=== PATIENT | female | born 1970 | race Caucasian/White ===

== ENCOUNTER → 2021-04-12 13:06 | Outpatient (CLI) | payer OTHER, SELFPAY ==
--- NOTE | ~2021-04-12 | XR_ITS ---
EXAMINATION: XR shoulder LT min 2V DATE: 04/12/2021 14:01 INDICATION: Left shoulder pain. TECHNIQUE: 4 views of left shoulder were obtained. COMPARISON: None. FINDINGS: Bone alignment is normal. No fracture. There is plate and screw fixation of the left clavic le. There is an old healed fracture of left sixth rib. There is mild osteoarthritis of glenoid yamila l joint and acromioclavicular joint characterized by tiny marginal osteophytes. IMPRESSION: 1. Mild polyarticular osteoarthritis. Reviewed, dictated and finalized at location A.
--- NOTE | ~2021-04-12 | XR_ITS ---
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 COMPARISON: None FINDINGS: . No free normal cervical lordosis. Odontoid is intact. Normal atlantoaxial interval. Vertebral body heights are normal. Moderate disc height loss at C6-C7, mild to moderate disc height loss at C4-C5 a nd C5-C6 and mild disc height loss at C3-C4. Moderate to severe uncovertebral osteoarthritis at each of these levels. Moderate facet osteoarthritis at C2-C3 and C7-T1 with mild facet osteoarthritis at t he intervening levels. Prevertebral soft tissues are normal. Plate and screw fixation along the left clavicular diaphysis. Visualized apices of lungs are clear. IMPRESSION: 1. Moderate cervical spondylosis. Reviewed, dictated and finalized at location A.
--- NOTE | ~2021-04-12 | XR_ITS ---
EXAMINATION: XR knee RT 3V DATE: 04/12/2021 14:01 INDICATION: Right knee pain. TECHNIQUE: 3 views of right knee were obtained. COMPARISON: None. FINDINGS: Bone alignment is normal. No fracture. There are surgical changes of anterior cruciate liga ment reconstruction. There is mild tricompartmental osteoarthritis. No knee joint effusion. IMPRESSION: 1. Mild right knee osteoarthritis. Reviewed, dictated and finalized at location A.
== END ==
PROVIDERS: PCP Family Medicine; Visit Provider Family Medicine
DX: M47.813 Spondylosis without myelopathy or radiculopathy, cervicothoracic region (principal); M19.012 Primary osteoarthritis, left shoulder; M17.11 Unilateral primary osteoarthritis, right knee
CPT/HCPCS: 72050; 73030; 73562

== ENCOUNTER 2021-05-16 12:14 | Outpatient (CLI) | payer OTHER, SELFPAY ==
--- NOTE | ~2021-05-16 | CT_ITS ---
EXAMINATION: CTA chest PE protocol EXAM DATE: 05/16/2021 12:47 INDICATION: Exertional dyspnea. Shortness of breath. Right-sided chest pain. Cough. TECHNIQUE: Spiral CTA of the chest (pulmonary arteries) was performed with 100 cc Omnipaque 350 intr avenous contrast injection. Images were acquired during the pulmonary arterial phase. Coronal maxi mum intensity projection 3D-reconstructions were created by the technologist on dedicated workstation . Axial, coronal and sagittal reformatted images were reviewed. The dose-length product (DLP) for t his examination was 605.33 mGy-cm. The exposure was tailored according to patient size (auto mA exp osure control), and iterative reconstruction (ASIR) was used as additional dose reduction technique. There is no prior study for comparison. FINDINGS: There is right lower lobe subsegmental pulmonary embolism. There is lingular segmental pul monary embolism (this could be subacute and partially resolving). Low clot burden. No thoracic aorti c dissection. The lungs are clear. Small pericardial effusion. No pleural effusions. Tracheobronc hial tree is patent. There is no mediastinal, hilar or axillary lymphadenopathy. There is no pneu mothorax. Heart normal in size. No evidence of coronary arterial calcification. Upper abdomen is unremarkable. No osteoblastic or osteolytic lesions identified. Left clavicular hardware. IMPRESSION: 1. Positive for lingular segmental, right lower lobe subsegmental pulmonary emboli. Low clot burden. 2. Small pericardial effusion. STAT hold and call. I confirmed with Misa that patient is in waiting room. She is notifying orderi doctor of results and patient will be given instructions at that time. Reviewed, dictated and finalized at location B. IMPRESSION: 1. Positive for lingular segmental, right lower lobe subsegmental pulmonary em boli. Low clot burden. 2. Small pericardial effusion. STAT hold and call. I confirmed with Misa that patient is in waiting room. S he is notifying ordering doctor of results and patient will be given instructio ns at that time.
--- NOTE | ~2021-05-16 | CT_ITS ---
EXAMINATION: CT brain wo con EXAM DATE: 05/16/2021 12:47 INDICATION: Right-sided headache, dizziness. TECHNIQUE: Spiral CT of the head was performed without contrast. Axial, coronal and sagittal images were reviewed. The dose-length product (DLP) for this examination was 605.33 mGy-cm. The exposure w as tailored according to patient size, and iterative reconstruction (ASIR) was used as additional dos e reduction technique. There is no prior study for comparison. FINDINGS: There is no acute intraparenchymal hemorrhage. No evidence of intraparenchymal brain mass lesion. No evidence of acute infarction. There is no mass effect or midline shift. The ventricles are normal in size. There are no extra-axial collections. There are no acute calvarial fractures. T he orbits are unremarkable. Soft tissue is unremarkable. The visualized sinuses and mastoid air chandra ls are well aerated. IMPRESSION: 1. No acute intracranial findings. Reviewed, dictated and finalized at location B.
== END 2021-05-16 12:15 | disposition home or self-care (01) ==
LOC: ANHIMG 12:16
PROVIDERS: PCP Family Medicine
DX: R06.09 Other forms of dyspnea (principal); R51.9 Headache, unspecified; J90 Pleural effusion, not elsewhere classified
CPT/HCPCS: 70450; 71275; Q9967

== ENCOUNTER 2021-05-17 09:33 | Emergency (ER) | payer OTHER, SELFPAY ==
--- NOTE | ~2021-05-17 | XR_ITS ---
EXAMINATION: XR chest 2V DATE: 05/17/2021 10:44 INDICATION: Chest pain. Dizziness. TECHNIQUE: Frontal and lateral views of the chest were obtained. COMPARISON: Chest CT 05/16/2021 FINDINGS: The chest demonstrates clear lungs without pneumonia, pleural effusion, or pneumothorax. Th e heart size is normal. There is plate and screw fixation of left clavicle. Breast implants are noted . IMPRESSION: 1. No acute cardiopulmonary disease. Reviewed, dictated and finalized at location A.
--- NOTE | ~2021-05-17 | US_ITS ---
EXAMINATION: US venous doppler LE EXAM DATE: 05/17/2021 11:42 INDICATION: Pulmonary embolism. Respiratory abnormality. TECHNIQUE: Multiple grayscale, color flow and Doppler images of the lower extremity deep venous syste ms bilaterally were obtained and reviewed. Correlation is made to CT pulmonary scan from yesterday. FINDINGS: Right side: The right common femoral, femoral and profunda veins demonstrate normal color flow, respi ratory variation, augmentation and compressibility. Compressibility, color flow confirmed within the right popliteal, posterior tibial, peroneal, and greater saphenous veins. Left side: The left common femoral, femoral and profunda veins demonstrate normal color flow, respira tory variation, augmentation and compressibility. Compressibility, color flow confirmed within the l eft popliteal, posterior tibial, peroneal, and greater saphenous veins. IMPRESSION: 1. No lower extremity deep venous thrombosis bilaterally. Reviewed, dictated and finalized at location B.
[2021-05-17 09:53] VITALS: BP 131/87; PULSE 70; RESP 9; TEMP 36.8; O2SAT 90
[2021-05-17] MEDS: KETOROLAC 15 MG/ML VIAL (*BKC) IV PUSH (10:14)
[2021-05-17 10:18] VITALS: O2SAT 95
[2021-05-17 10:20] LABS: Basophils Absolute Auto 0.1 K/mm3 (0.0-0.1); Basophils Percent Auto 1.1 % (0.2-1.2); Eosinophils Absolute Auto 0.1 K/mm3 (0-0.3); Eosinophils Percent Auto 1.4 % (0-4.4); Hematocrit 41.3 % (37.0-47.0); Hemoglobin 13.7 g/dL (12.0-15.0); Immature Granulocyte Absolute 0.06 K/mm3 (0.00-0.031); Immature Granulocyte Percent A 0.9 % (0-0.5); Lymphocytes Absolute Auto 2.68 K/mm3 (0.9-3.2); Lymphocytes Percent Auto 40.7 % (18.3-44.2); Mean Corpuscular HGB Conc 33.2 g/dl (32-36); Mean Corpuscular Hemoglobin 31.4 pg (26-34); Mean Corpuscular Volume 94.7 fl (80-100); Mean Platelet Volume 9.3 fl (7.4-10.4); Monocytes Absolute Auto 0.6 K/mm3 (0.1-0.6); Monocytes Percent Auto 8.5 % (2.6-8.5); Neutrophils Absolute Auto 3.1 K/mm3 (1.3-6.7); Neutrophils Percent Auto 47.4 % (45.5-73.1); Platelet Count Result 302 k/mm3 (150-375); Red Blood Count 4.36 M/mm3 (4.2-5.4); Red Cell Distribution Width 13.1 % (11.5-14.5); White Blood Count 6.6 K/mm3 (4.5-10.0)
[2021-05-17 10:30] LABS: Anion Gap 7 mmol/L (8-16); Blood Urea Nitrogen 13 mg/dL (7-17); Calcium 9.7 mg/dL (8.4-10.2); Carbon Dioxide 23 mmol/L (22-30); Chloride 108 mmol/L (98-107); Estimated CRCL calculation 54 ml/min; Estimated Glomerular Filt Rate > 60; Glucose 100 mg/dL (65-105); Potassium 3.8 mmol/L (3.4-5.0); Sodium 138 mmol/L (137-145)
[2021-05-17 10:42] LABS: NT Pro B Type Natriuretic Pept 66 pg/mL (5-100); Troponin I < 0.012 ng/mL (0.000-0.034)
[2021-05-17] MEDS: LORazepam INJ (*CRX) 2 MG/ML VIAL (11:15)
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
[2021-05-17 12:43] VITALS: BP 129/87; PULSE 89; RESP 18; O2SAT 100
== END 2021-05-17 12:53 | disposition home or self-care (01) ==
PROVIDERS: Emergency Provider Emergency Medicine; PCP Family Medicine
DX: I26.99 Other pulmonary embolism without acute cor pulmonale (principal); R09.1 Pleurisy
CPT/HCPCS: 36415; 71046; 80048; 83880; 84484; 85025; 93970; 96374; 96375; 99284; J1885; J2060

== ENCOUNTER 2021-07-25 06:47 | Outpatient (CLI) | payer OTHER, SELFPAY ==
--- NOTE | ~2021-07-25 | MR_ITS ---
EXAMINATION: MR cervical spine wo con EXAM DATE: 07/25/2021 07:42 INDICATION: M54.12 - Radiculopathy, cervical region. Bilateral hand pain, numbness. Neck pain. TECHNIQUE: Multi-sequential, multiplanar MR images of the cervical spine were obtained without contra st. Axial T2, axial T2 MERGE sequence. Sagittal T1, T2, T2 fat saturation images also obtained. Cor relation is made to Cervical x-ray 04/12/2021 FINDINGS: There is mild reversal of the normal cervical lordosis which may be positional or spasm. T here is moderate loss of the disc height from C4 through C7, mild to moderate at C3-4. The vertebral bodies are aligned in the AP dimension. The spinal cord signal intensity and intrinsic morphology is normal. Cervicomedullary junction is normal in appearance. There are no suspicious marrow signal abno rmalities. Paraspinal soft tissue is unremarkable. Level by level evaluation: C2-C3: Disc does not extend beyond the endplate margin. Uncovertebral joint arthropathy: Mild left. Facet joint arthropathy: Mild to moderate bilateral. Neural foraminal stenosis: No stenosis. Central canal stenosis: No stenosis. C3-C4: There is a mild diffuse disc bulge. Uncovertebral joint arthropathy: Moderate left, mild to moderate right. Facet joint arthropathy: Mild to moderate right, mild left. Neural foraminal stenosis: Mild bilateral. Central canal stenosis: Mild. C4-C5: There is a mild diffuse disc bulge. Uncovertebral joint arthropathy: Moderate to severe bilateral. Facet joint arthropathy: Mild to moderate bilateral. Neural foraminal stenosis: Moderate to severe right, moderate left. Central canal stenosis: Mild. C5-C6: There is a mild diffuse disc bulge. Uncovertebral joint arthropathy: Moderate to severe right, moderate left. Facet joint arthropathy: Mild bilateral. Neural foraminal stenosis: Moderate to severe right, mild to moderate left. Central canal stenosis: Minimal. C6-C7: There is a mild diffuse disc bulge. Uncovertebral joint arthropathy: Moderate bilateral. Facet joint arthropathy: Mild bilateral. Neural foraminal stenosis: Moderate to severe left, moderate right. Central canal stenosis: Mild. C7-T1: Disc does not extend beyond the endplate margin. Uncovertebral joint arthropathy: Mild bilateral. Facet joint arthropathy: Mild bilateral. Neural foraminal stenosis: No stenosis. Central canal stenosis: No stenosis. IMPRESSION: 1. Some significant mid cervical neural foraminal stenosis as detailed above. Reviewed, dictated and finalized at location B.
== END 2021-07-25 06:48 | disposition home or self-care (01) ==
PROVIDERS: PCP Family Medicine; Visit Provider Family Medicine
DX: M54.12 Radiculopathy, cervical region (principal)
CPT/HCPCS: 72141

== ENCOUNTER 2021-08-02 08:00 | Outpatient (RCR) | payer OTHER, SELFPAY ==
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
--- NOTE | 2021-08-02 08:15 | PCPTNOTE ---
Patient did not show up for scheduled appointment this date. Attempted to call, but no answer. Will DC skilled therapy services.
--- NOTE | 2021-08-02 08:16 | PCPTNOTE ---
Admitting Provider: Attending Provider: Dorcas Fleming MD Patient:Claire Solomon Date of :1970 Discharge Note Patient has not returned for any further treatments since 07/03/2021, therefore she will be discharged at this time. She has not returned to therapy since her last therapy update. Patient?s initial visit was on 06/01/2021 08:30 and she had a total of 8 visits. The goals have been partially met at this time. Thank you for referring this patient to [facility]. Please review, sign, date and return this discharge summary JUSTINE. I have been updated about the patient's current status and I agree with discharge from the above service at this time. Referring Physician Date
== END 2021-08-02 15:04 | disposition home or self-care (01) ==
LOC: ANHPT 08:00
PROVIDERS: PCP Family Medicine; Visit Provider Family Medicine
DX: M54.12 Radiculopathy, cervical region (principal)
CPT/HCPCS: 97012; 97014; 97110; 97140; 97162; 97163; G0283

== ENCOUNTER 2021-10-06 10:40 | Outpatient (CLI) | payer OTHER, SELFPAY ==
[2021-10-06 11:14] LABS: INR 1.5; Prothrombin Time 17.8 Seconds (11.1-14.7)
== END 2021-10-06 10:41 | disposition home or self-care (01) ==
LOC: ANHLAB 10-09 11:25
PROVIDERS: PCP Family Medicine; Visit Provider Family Medicine
DX: D68.51 Activated protein C resistance (principal); I26.99 Other pulmonary embolism without acute cor pulmonale; Z79.01 Long term (current) use of anticoagulants
CPT/HCPCS: 36415; 85610

== ENCOUNTER 2021-10-09 11:20 | Outpatient (CLI) | payer OTHER, SELFPAY ==
[2021-10-09 12:20] LABS: INR 2.8
== END 2021-10-09 11:21 | disposition home or self-care (01) ==
PROVIDERS: PCP Family Medicine; Visit Provider Family Medicine
DX: Z51.81 Encounter for therapeutic drug level monitoring (principal); Z79.01 Long term (current) use of anticoagulants
CPT/HCPCS: 36415; 85610

== ENCOUNTER 2021-10-16 09:47 | Outpatient (CLI) | payer OTHER, SELFPAY ==
[2021-10-16 10:23] LABS: INR 2.6; Prothrombin Time 27.4 Seconds (11.1-14.7)
== END 2021-10-16 09:48 | disposition home or self-care (01) ==
LOC: ANHLAB 09:49
PROVIDERS: PCP Family Medicine; Visit Provider Family Medicine
DX: Z79.01 Long term (current) use of anticoagulants (principal)
CPT/HCPCS: 36415; 85610

== ENCOUNTER 2022-01-08 14:24 | Outpatient (RCR) | payer OTHER, SELFPAY ==
[2021-12-17 12:16] LABS: INR 2.6; Prothrombin Time 27.2 Seconds (11.1-14.7)
[2022-01-08 15:10] LABS: INR 1.6; Prothrombin Time 18.8 Seconds (11.1-14.7)
== END 2022-03-17 23:59 | disposition home or self-care (01) ==
LOC: ANHLAB 14:24
PROVIDERS: PCP Family Medicine; Visit Provider Family Medicine
DX: Z51.81 Encounter for therapeutic drug level monitoring (principal); I26.99 Other pulmonary embolism without acute cor pulmonale; Z79.01 Long term (current) use of anticoagulants
CPT/HCPCS: 36415; 85610

== ENCOUNTER 2022-01-18 12:42 | Outpatient (CLI) | payer OTHER, SELFPAY ==
[2022-01-18 13:22] LABS: Anion Gap 7 mmol/L (8-16); Blood Urea Nitrogen 10 mg/dL (7-17); Calcium 9.4 mg/dL (8.4-10.2); Carbon Dioxide 28 mmol/L (22-30); Chloride 102 mmol/L (98-107); Estimated Glomerular Filt Rate > 60; Glucose 91 mg/dL (65-110); INR 3.3; Prothrombin Time 32.2 Seconds (11.1-14.7); Sodium 137 mmol/L (137-145)
[2022-01-18 13:34] LABS: Troponin I < 0.012 ng/mL (0.000-0.034)
== END 2022-01-18 12:43 | disposition home or self-care (01) ==
PROVIDERS: PCP Family Medicine
DX: I26.99 Other pulmonary embolism without acute cor pulmonale (principal)
CPT/HCPCS: 36415; 80048; 84484; 85610

== ENCOUNTER 2022-01-19 08:04 | Outpatient (CLI) | payer OTHER, SELFPAY ==
--- NOTE | ~2022-01-19 | CT_ITS ---
EXAMINATION: CTA chest PE protocol DATE: 01/19/2022 08:35 INDICATION: Chest pain. Short of breath. Other pulmonary embolism without acute cor pulmonale. TECHNIQUE: Computed tomography angiography (CTA) of the chest was performed with 100 mL Omnipaque-350 intravenous contrast timed to evaluate the pulmonary arteries. Coronal maximum intensity projection 3D-reconstructions were created by the technologist. Automated exposure control and iterative reconst ruction technique were employed. The dose-length product was 211.05 mGy-cm. COMPARISON: Chest CT 05/16/2021 FINDINGS: There is mild atelectasis bilaterally. No pleural effusion. The heart size is normal. No pe ricardial effusion. There are bilateral breast implants. There is no pulmonary embolus. There are evan nges of anterior fusion procedure in cervical spine. IMPRESSION: 1. No pulmonary embolus. Reviewed, dictated and finalized at location A. IT HISTORIAN IMPRESSION: 1. No pulmonary embolus.
== END 2022-01-19 08:05 | disposition home or self-care (01) ==
LOC: ANHIMG 08:05
PROVIDERS: PCP Family Medicine
DX: R07.9 Chest pain, unspecified (principal); R06.02 Shortness of breath
CPT/HCPCS: 71275; Q9967

== ENCOUNTER 2022-03-24 11:55 | Emergency (ER) | payer SELFPAY ==
[2022-03-24 11:58] VITALS: BP 142/96; PULSE 68; RESP 16; TEMP 36.6; O2SAT 100
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
[2022-03-24] MEDS: ONDANSETRON HCL ODT 4 MG TABLET PO (12:55)
[2022-03-24] MEDS: IBUPROFEN 600 MG TABLET PO (12:55)
[2022-03-24] MEDS: HYDROmorphone HCL INJ (*CRX) 1 MG/ML SYR IM (12:56)
[2022-03-24] MEDS: SILVER SULFADIAZINE 1% CR 400 GM JAR (*BKC) 1 APPLIC TOPICAL (12:59)
== END 2022-03-24 13:32 | disposition home or self-care (01) ==
PROVIDERS: Emergency Provider Emergency Medicine; PCP Family Medicine
DX: T20.10XA Burn of first degree of head, face, and neck, unspecified site, initial encounter (principal); T22.111A Burn of first degree of right forearm, initial encounter; T22.131A Burn of first degree of right upper arm, initial encounter; T21.11XA Burn of first degree of chest wall, initial encounter; T31.0 Burns involving less than 10% of body surface; F43.10 Post-traumatic stress disorder, unspecified; Z86.711 Personal history of pulmonary embolism; W40.1XXA Explosion of explosive gases, initial encounter
CPT/HCPCS: 96372; 99283; A9270; J1170

== ENCOUNTER 2022-04-21 12:36 | Outpatient (CLI) | payer OTHER, SELFPAY ==
--- NOTE | ~2022-04-21 | MR_ITS ---
EXAMINATION: MR cervical spine wo con DATE: 04/21/2022 13:14 INDICATION: Cervical spinal fusion. Bilateral hand numbness and tingling. Bilateral arm pain. TECHNIQUE: Magnetic resonance imaging (MRI) of the cervical spine was performed without intravenous c ontrast. Sequences included sagittal T2-weighted FSE, sagittal T2-weighted FS FSE, sagittal T1-weight ed FSE, axial MERGE, and axial T2-weighted FSE. COMPARISON: Cervical spine MRI 07/25/2021 FINDINGS: There is hypolordosis of cervical spine. There is 2 mm retrolisthesis of C4 on C5. There ar e changes of anterior fusion procedure from C4 to C7 with interbody devices and anterior plate and sc rews. There is mild chronic anterior wedging of T1 vertebral body. There is mildly decreased disc hei ght at C3-C4. The spinal cord signal intensity is normal. The following disc levels are specifically discussed: C2-C3: The disc does not extend beyond the endplate margin. There is no uncovertebral joint osteoarth ritis. There is moderate bilateral facet joint osteoarthritis. There is no neural foraminal stenosis. There is no central canal stenosis. C3-C4: The disc is bulging. There is moderate right and severe left uncovertebral joint osteoarthriti s. There is moderate bilateral facet joint osteoarthritis. There is mild right and moderate left neur al foraminal stenosis. There is mild central canal stenosis with ventral indentation of the spinal co rd. C4-C5: There is mild right and moderate left uncovertebral joint hypertrophy. There is moderate right and mild left facet joint osteoarthritis. There is mild bilateral neural foraminal stenosis. There i s no central canal stenosis. C5-C6: There is moderate bilateral uncovertebral joint hypertrophy. There is no facet joint osteoarth ritis. There is mild bilateral neural foraminal stenosis. There is no central canal stenosis. C6-C7: There is mild bilateral uncovertebral joint hypertrophy. There is moderate bilateral facet melissa nt osteoarthritis. There is mild bilateral neural foraminal stenosis. There is no central canal steno sis. C7-T1: The disc does not extend beyond the endplate margin. There is no uncovertebral joint osteoarth ritis. There is moderate right and severe left facet joint osteoarthritis. There is no neural foramin al stenosis. There is no central canal stenosis. IMPRESSION: 1. Moderate cervical spondylosis. 2. Anterior fusion procedure from C4 to C7. Reviewed, dictated and finalized at location B.
== END 2022-04-21 12:37 | disposition home or self-care (01) ==
PROVIDERS: PCP Family Medicine; Visit Provider Neurological Surgery
DX: M47.813 Spondylosis without myelopathy or radiculopathy, cervicothoracic region (principal); M48.03 Spinal stenosis, cervicothoracic region; Z98.1 Arthrodesis status
CPT/HCPCS: 72141

== ENCOUNTER 2022-07-02 10:38 | Outpatient (CLI) | payer OTHER, SELFPAY ==
[2022-07-02 11:03] LABS: Basophils Absolute Auto 0.1 K/mm3 (0.0-0.1); Basophils Percent Auto 0.7 % (0.2-1.2); Eosinophils Absolute Auto 0.1 K/mm3 (0-0.3); Eosinophils Percent Auto 0.6 % (0-4.4); Hematocrit 39.6 % (37.0-47.0); Hemoglobin 12.9 g/dL (12.0-15.0); Immature Granulocyte Absolute 0.07 K/mm3 (0.00-0.031); Immature Granulocyte Percent A 0.6 % (0-0.5); Lymphocytes Absolute Auto 4.25 K/mm3 (0.9-3.2); Lymphocytes Percent Auto 39.2 % (18.3-44.2); Mean Corpuscular HGB Conc 32.6 g/dl (32-36); Mean Corpuscular Hemoglobin 30.2 pg (26-34); Mean Corpuscular Volume 92.7 fl (80-100); Mean Platelet Volume 9.2 fl (7.4-10.4); Monocytes Absolute Auto 0.7 K/mm3 (0.1-0.6); Monocytes Percent Auto 6.5 % (2.6-8.5); Neutrophils Absolute Auto 5.7 K/mm3 (1.3-6.7); Neutrophils Percent Auto 52.4 % (45.5-73.1); Platelet Count Result 285 k/mm3 (150-375); Red Blood Count 4.27 M/mm3 (4.2-5.4); Red Cell Distribution Width 12.6 % (11.5-14.5); White Blood Count 10.9 K/mm3 (4.5-10.0)
[2022-07-02 11:12] LABS: INR 1.5
[2022-07-02 11:15] LABS: Alanine Aminotransferase 18 U/L (6-35); Albumin Level 4.5 g/dL (3.5-5.1); Alkaline Phosphatase 56 U/L (38-126); Anion Gap 5 mmol/L (8-16); Aspartate Amino Transferase 25 U/L (14-36); Bilirubin,Total 0.4 mg/dL (0.2-1.3); Blood Urea Nitrogen 12 mg/dL (7-17); Calcium 9.2 mg/dL (8.4-10.2); Carbon Dioxide 33 mmol/L (22-30); Chloride 102 mmol/L (98-107); Cholesterol 247 mg/dL (0-200); Estimated Glomerular Filt Rate > 60; Glucose 85 mg/dL (65-110); HDL Direct 70 mg/dL; Potassium 3.7 mmol/L (3.4-5.0); Sodium 140 mmol/L (137-145); Triglycerides 85 mg/dL (<150)
[2022-07-02 11:24] LABS: Rheumatoid Factor < 8.6 IU/ML (<12)
[2022-07-02 11:26] LABS: LDL Cholesterol Direct 124 mg/dL
[2022-07-02 11:41] LABS: Erythrocyte Sedimentation Rate 13 mm/hr (0-20)
[2022-07-06 18:15] LABS: ANA Cascade Screen Negative (Negative)
== END 2022-07-02 10:39 | disposition home or self-care (01) ==
PROVIDERS: PCP Family Medicine; Visit Provider Family Medicine
DX: M79.10 Myalgia, unspecified site (principal)
CPT/HCPCS: 36415; 80053; 80061; 85025; 85610; 85652; 86038; 86430

== ENCOUNTER 2022-07-17 14:14 | Outpatient (RCR) | payer OTHER, SELFPAY ==
[2022-06-04 18:37] LABS: INR 2.9; Prothrombin Time 29.6 Seconds (11.1-14.7)
[2022-07-01 11:33] LABS: INR 1.4; Prothrombin Time 16.2 Seconds (11.1-14.7)
[2022-07-17 14:54] LABS: INR 2.3; Prothrombin Time 24.6 Seconds (11.1-14.7)
== END 2022-09-02 23:59 | disposition home or self-care (01) ==
LOC: ANHLAB 14:14
PROVIDERS: PCP Family Medicine; Visit Provider Family Medicine
DX: Z51.81 Encounter for therapeutic drug level monitoring (principal); Z79.01 Long term (current) use of anticoagulants
CPT/HCPCS: 36415; 85610

== ENCOUNTER 2022-10-02 09:28 | Outpatient (CLI) | payer OTHER, SELFPAY ==
--- NOTE | ~2022-10-02 | MR_ITS ---
EXAMINATION: MR cervical spine wo/w con DATE: 10/02/2022 10:29 INDICATION: Severe neck pain. Radiculopathy. TECHNIQUE: Magnetic resonance imaging (MRI) of the cervical spine was performed without and with 13 m L MultiHance intravenous contrast. COMPARISON: Cervical spine MRI 04/21/2022 FINDINGS: There is kyphosis of superior cervical spine. There are changes of anterior fusion procedur e from C3 to C7 with plates and screws. Intervertebral disc heights are normal. The spinal cord signa l intensity is normal. The following disc levels are specifically discussed: C2-C3: The disc does not extend beyond the endplate margin. There is no uncovertebral joint osteoarth ritis. There is moderate right and mild left facet joint osteoarthritis. There is no neural foraminal stenosis. There is no central canal stenosis. C3-C4: There is mild bilateral uncovertebral joint hypertrophy. There is no facet joint osteoarthriti s. There is mild bilateral neural foraminal stenosis. There is no central canal stenosis. C4-C5: There is mild left uncovertebral joint hypertrophy. There is no facet joint osteoarthritis. Th ere is mild left neural foraminal stenosis. There is no central canal stenosis. C5-C6: There is mild lateral uncovertebral joint hypertrophy. There is no facet joint osteoarthritis. There is mild left neural foraminal stenosis. There is no central canal stenosis. C6-C7: There is mild bilateral uncovertebral joint hypertrophy. There is no facet joint osteoarthriti s. There is mild left neural foraminal stenosis. There is no central canal stenosis. C7-T1: The disc does not extend beyond the endplate margin. There is no uncovertebral joint osteoarth ritis. There is severe bilateral facet joint osteoarthritis. There is mild left neural foraminal sten osis. There is no central canal stenosis. IMPRESSION: 1. Anterior fusion procedure from C3 to C7. 2. Mild cervical spondylosis. Reviewed, dictated and finalized at location A. [employer]
== END 2022-10-02 09:29 | disposition home or self-care (01) ==
PROVIDERS: PCP Family Medicine; Visit Provider Neurological Surgery
DX: R20.2 Paresthesia of skin (principal); M47.892 Other spondylosis, cervical region; Z98.1 Arthrodesis status
CPT/HCPCS: 72156; A9577

== ENCOUNTER 2022-10-29 08:10 | Outpatient (CLI) | payer OTHER, SELFPAY ==
[2022-10-29 09:00] LABS: INR 2.5; Prothrombin Time 25.8 Seconds (11.1-14.7)
[2022-10-29 09:51] LABS: D Dimer 0.31 ug/mL (<0.48)
== END 2022-10-29 08:11 | disposition home or self-care (01) ==
PROVIDERS: PCP Family Medicine; Visit Provider Emergency Medicine
DX: R06.02 Shortness of breath (principal); Z87.01 Personal history of pneumonia (recurrent)
CPT/HCPCS: 36415; 85380; 85610

== ENCOUNTER 2023-05-09 08:25 | Outpatient (CLI) | payer BC, SELFPAY ==
[2023-05-09 11:00] LABS: D Dimer 0.39 ug/mL (<0.48)
== END 2023-05-09 08:26 | disposition home or self-care (01) ==
PROVIDERS: PCP Family Medicine; Visit Provider Emergency Medicine
DX: R06.02 Shortness of breath (principal); Z86.711 Personal history of pulmonary embolism
CPT/HCPCS: 36415; 85380; 85610

== ENCOUNTER 2023-05-19 15:27 | Outpatient (RCR) | payer BC, SELFPAY ==
[2023-05-09 09:52] LABS: INR 1.2; Prothrombin Time 15.8 Seconds (11.1-14.7)
[2023-05-19 16:14] LABS: INR 2.1; Prothrombin Time 24.8 Seconds (11.1-14.7)
== END 2023-08-07 23:59 | disposition home or self-care (01) ==
LOC: ANHLAB 15:27
PROVIDERS: PCP Family Medicine; Visit Provider Family Medicine
DX: Z51.81 Encounter for therapeutic drug level monitoring (principal); I26.99 Other pulmonary embolism without acute cor pulmonale; Z79.01 Long term (current) use of anticoagulants
CPT/HCPCS: 36415; 85610

== ENCOUNTER 2023-08-18 15:54 | Outpatient (RCR) | payer BC, SELFPAY ==
[2023-08-18 17:44] LABS: INR 0.9; Prothrombin Time 12.8 Seconds (11.1-14.7)
[2023-08-18 17:45] LABS: Partial Thromboplastin Time 24.5 SECONDS (22.3-36.8)
== END 2023-11-16 23:59 | disposition home or self-care (01) ==
LOC: ANHLAB 15:54
PROVIDERS: PCP Family Medicine; Visit Provider Anesthesiology
DX: Z51.81 Encounter for therapeutic drug level monitoring (principal); Z79.01 Long term (current) use of anticoagulants
CPT/HCPCS: 36415; 85610; 85730

== ENCOUNTER 2023-08-19 15:19 | Outpatient (CLI) | payer BC, SELFPAY ==
--- NOTE | 2023-08-19 15:28 | ECG_ITS ---
Measurements Intervals [place] Rate: 74 P: 65 GA: 167 QRS: 12 QRSD: 94 T: 44 QT: 345 QTc: 385 Interpretive Statements SINUS RHYTHM POSSIBLE LEFT ATRIAL ENLARGEMENT [-0.1mV P WAVE IN V1/V2] INCOMPLETE RIGHT BUNDLE BRANCH BLOCK [90+ ms QRS DURATION, TERMINAL R IN V1/V2, 40+ ms S IN I/aVL/V4/V5/V6] NO PREVIOUS ECG AVAILABLE FOR COMPARISON Electronically Signed On 08-19-2023 16:37:26 CDT by Harley Mathis M.D.
== END 2023-08-19 15:20 | disposition home or self-care (01) ==
LOC: ANHSURGERY 15:23
PROVIDERS: PCP Family Medicine; Visit Provider Podiatrist Foot & Ankle Surgery
DX: Z87.891 Personal history of nicotine dependence (principal); Z01.818 Encounter for other preprocedural examination
CPT/HCPCS: 93005

== ENCOUNTER 2023-08-22 02:43 | Day surgery (SDC) | payer BC, SELFPAY ==
[2023-08-14 09:19] VITALS: BMI 25.7
--- NOTE | 2023-08-14 09:30 | PC.NURSE ---
Report to the Outpatient Waiting Room, entrance under the green pavilion located off [facility], at time 6:00 on date 08/22/23. Planned Procedure Time: 7:30. Time changes happen often and if your time is changed the preop area will call you the afternoon before. - You and your visitor will be asked to self-screen and do not enter if you have any COVID symptoms. - A mask is optional within the hospital at this time. Patients may have clear liquids (water, carbonated beverages, clear teas, apple juice) until 3 hours prior to surgery with a maximum of 20 ounces. - No food from midnight until time of surgery Take the following medications with a SIP of water the morning of surgery: NONE DO NOT STOP ANY OF YOUR OTHER PRESCRIPTION MEDICATIONS PRIOR TO SURGERY ?EXCEPT THE FOLLOWING Medications to discontinue per physician: WARFARIN Date to take last dose: PER DR. MORGAN DO NOT RESTART SEMAGLUTIDE UNTIL AFTER SURGERY. Please no make-up, nail dutch, hairspray, perfume, deodorant, or body powder the day of surgery. No jewelry (including any body piercings) or valuables the day of surgery, leave them at home. Please take a shower or bath the night before, or the morning of, surgery with an antibacterial soap. Wear comfortable, loose fitting clothing. - Jewelry must be removed prior to entering the operating room. Rings and piercings that are not removed may be cut off. - The hospital will not accept responsibility for valuables. - Please leave all valuables, including medications, at home the day of surgery. If you are going home after surgery, a licensed inventory associate and driver must drive you home. - NO public transportation without another adult if you receive anesthesia. - We recommend that an adult stay with you for 24 hours following discharge. - We also recommend that you do not drive, make important decision, drink alcoholic beverages, or take any drugs that were not prescribed by your health care provider for at least 24 hours after your discharge time. Follow any additional instructions given to you from your surgeon. If you or anyone in your household have experienced Covid symptoms in the past week, please notify your surgeon or the nurse liaison at the phone number below for possible testing. Telephone instructions given to PT - LISA VENTURA and asked if any additional questions and then verbalized understanding. Patient advised to call surgeon office or pre surgery nurse liaison [phone] if any additional questions.
[2023-08-22] VITALS (7 sets, daily range): BP systolic 95–113; BP diastolic 62–72; PULSE 60–93; RESP 12–16; TEMP 36.2–36.4; O2SAT 97–100; BMI 24.0
--- NOTE | ~2023-08-22 | XR_ITS ---
EXAMINATION: XR surgery orthopedic DATE: 08/22/2023 09:06 INDICATION: Arthritic bunion of left foot. TECHNIQUE: 2 intraoperative fluoroscopic views of left foot were obtained. I was not present. Fluoros copy time was 3 seconds. COMPARISON: None. FINDINGS: There is an arthrodesis of first metatarsophalangeal joint with dorsal plate and screws. Th ere is an osteotomy of neck of fifth metatarsal with fixation with 2 screws. IMPRESSION: 1. Arthrodesis of first metatarsophalangeal joint. 2. Osteotomy of neck of fifth metatarsal with internal fixation. Reviewed, dictated and finalized at location A.
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
[2023-08-22] MEDS: LACTATED RINGERS 1,000 ML 30 ML IV CONT ×2 (06:40→09:02)
[2023-08-22] MEDS: SCOPOLAMINE 1.5 MG PATCH TRANSDERM (06:46)
--- NOTE | 2023-08-22 07:04 | WPDHPUPDATE1 ---
History and Physical Update Update Date/Time: 08/22/23 07:04 History and Physical has been reviewed, including an updated exam of the patient. There are NO changes in the patient's condition. Risks, benefits, and alternatives have been discussed and questions answered. Patient agrees to proceed with procedure.
--- NOTE | 2023-08-22 07:35 | WPDANESPNB ---
Anes - Peripheral Nerve Block Date/Time: 08/22/23 07:35 I have discussed with the patient/family/POA the placement of a peripheral nerve block for post-operative pain management, including associated risks, benefits, complications, and side effects. Alternative methods of post-operative analgesia were detailed. Questions were solicited and answers provided to the satisfaction of the patient/family/POA. Time-Out: A pre-procedural Time-Out was completed immediately before starting the procedure and confirmed: Patient Identification, Site, Procedure, Patient Position and the Availability of Requisite Equipment. Clinical Indications: Acute post-operative pain management requested by the operative surgeon. Nerve Block Insertion Note Anes-nerve block: posterior fossa sciatic left and other (saphenous) Patient position: supine Skin prep: chlorhexidine Needle: 22 gauge, stimulating, insulated echogenic needle. Needle length: 80 mm Technique: nerve stimulation lost at (mA) (0.3) Injectate: bupivacaine 0.5% with epi 5 mcg/ml (23cc sciatic, 8 cc saphenous) and dexamethasone (mg) (8) Observations: tolerated well Complications: none Procedure start time:: 724 Procedure end time:: 729
[2023-08-22] MEDS: ceFAZolin 2 GM/D5W 50 ML 2 GM/50 ML BAG IVPB (07:38)
--- NOTE | 2023-08-22 09:12 | W.PM.PROC2 ---
Procedure Note - Detailed Date of Procedure 08/22/23 Pre-op Diagnosis 1. Arthritic bunion left foot 2. Tailors bunion deformity left foot Post-op Diagnosis Same Procedure Performed 1. Arthrodesis of the first metatarsal phalangeal joint left foot 2. Tailor's bunionectomy with distal fifth metatarsal osteotomy left foot Surgeon Jeronimo Guajardo JR, LAISHA Anesthesia General and Regional Indications Painful left forefoot Findings Large osteochondral defect along the plantar central aspect of the head of the first metatarsal Description of Procedure PROCEDURE IN DETAIL: Under mild sedation, the patient was brought into the operating room, placed on the operating table in supine position. A pneumatic ankle tourniquet was placed about the patient's ipsilateral ankle. Following general LMA, and a previous popliteal fossa block the foot and ankle were then scrubbed, prepped, and draped in the usual aseptic manner. An Esmarch bandage was then used to exsanguinate the patient's foot and the pneumatic ankle tourniquet was then inflated. Surgery began in the following manner: Attention was directed to the dorsal aspect of the 1st metatarsophalangeal joint where there was a large subcutaneous prominence noted along the dorsomedial aspect of the joint. The incision was made starting along the central shaft of the 1st metatarsal and extending just proximal to the interphalangeal joint of the hallux. The incision was continued deep down through the subcutaneous tissues using sharp and blunt dissection. All bleeders were cauterized as necessary. At this point, the dissection was continued down to the level of the periosteum and capsular structures overlying the 1st metatarsophalangeal joint. A full length periosteum and capsular incision was made just medial to the extensor hallucis longus tendon. The periosteum and capsular structures were freed from the base of the proximal phalanx as well as the distal 1st metatarsal. At this point, the 1st metatarsophalangeal joint was identified. There was almost complete loss of articular cartilage to the plantar central aspect of the head of the 1st metatarsal. Utilizing a sagittal bone saw, the hypertrophied 1st metatarsal was resected dorsally, medially, and laterally. A power bur was used to make sure that there were no rough edges and also to further debride the hypertrophic 1st metatarsal. Next, a rongeur was used to resect all hypertrophic base of the proximal phalanx. At this point, the reamer system for the [place] CrossCHECK system was used to denude the degenerative cartilage from the head of the 1st metatarsal as well as the base of the proximal phalanx. The cartilage and subchondral bone were fully debrided utilizing the reamer system until healthy bleeding bone was noted. Next, a 2-0 drill bit was used to further fenestrate the head of the 1st metatarsal as well as the base of the proximal phalanx in order to allow fusion across the 1st metatarsophalangeal joint. Next, a 0.045 inch K-wire was driven from the medial aspect of the base of the proximal phalanx into the head of the 1st metatarsal in order to serve as temporary fixation. A large steel plate was used to make sure that the hallux was in a rectus position both in the sagittal plane as well as the frontal and transverse plane. Excellent position of the hallux was noted. Next, a CrossCHECK plate was placed atop the 1st metatarsophalangeal joint held in position with [place] wires. Utilizing standard principles and techniques, the 2 distal drill holes were drilled and two 2.7mm mm fully-threaded locking screws were driven from dorsal to plantar holding the distal aspect of the plate intact. At this point, a 3.5mm lag screw was driven from dorsal distal to proximal plantar across the 1st metatarsophalangeal joint through the plate system with excellent compression noted after careful removal of the olive wire and temporary fixation fr
== END 2023-08-22 10:23 | disposition home or self-care (01) ==
PROVIDERS: PCP Family Medicine; Visit Provider Podiatrist Foot & Ankle Surgery
PROC: (CPT 28750; principal; 2023-08-22 07:30)
DX: M21.612 Bunion of left foot (principal); M21.622 Bunionette of left foot; G89.18 Other acute postprocedural pain; Z79.01 Long term (current) use of anticoagulants; Z86.711 Personal history of pulmonary embolism; Z86.718 Personal history of other venous thrombosis and embolism; Z98.1 Arthrodesis status; Z87.891 Personal history of nicotine dependence
CPT/HCPCS: 28750; 28308; 64450; 64445; 99199; A9270; C1713; J0690; J1100; J2250; J2405; J2704; J3010; J7120

== ENCOUNTER 2024-02-29 13:23 | Emergency (ER) | payer BC, SELFPAY ==
--- NOTE | ~2024-02-29 | CT_ITS ---
EXAMINATION: CT cervical spine wo con DATE: 02/29/2024 15:05 INDICATION: Neck pain. Fall. TECHNIQUE: Computed tomography (CT) of the cervical spine was performed without intravenous contrast. Automated exposure control and iterative reconstruction technique were employed. The dose-length pro duct was 165.84 mGy-cm. COMPARISON: None FINDINGS: C1 ring is ununited posteriorly, a normal variant. There are changes of anterior fusion pro cedure from C3 to C7 with interbody devices and anterior plate and screws. There is 2 mm retrolisthes is of C4 on C5. There is mild chronic anterior wedging of T1 vertebral body. Intervertebral disc heig hts are normal. The following disc levels are specifically discussed: C2-C3: There is no uncovertebral joint osteoarthritis. There is severe right and moderate left facet joint osteoarthritis. There is mild right neural foraminal stenosis. There is no central canal stenos is. C3-C4: There is moderate bilateral uncovertebral joint hypertrophy. There is mild right facet joint o steoarthritis. There is mild right neural foraminal stenosis. There is no central canal stenosis. C4-C5: There is moderate bilateral uncovertebral joint hypertrophy. There is mild bilateral facet melissa nt hypertrophy. There is mild bilateral neural foraminal stenosis. There is no central canal stenosis . C5-C6: There is moderate bilateral uncovertebral joint hypertrophy. There is no facet joint hypertrop hy. There is mild bilateral neural foraminal stenosis. There is no central canal stenosis. C6-C7: There is moderate bilateral uncovertebral joint hypertrophy. There is severe bilateral facet j oint osteoarthritis. There is mild bilateral neural foraminal stenosis. There is no central canal rashawn nosis. C7-T1: There is no uncovertebral joint osteoarthritis. There is severe bilateral facet joint osteoart hritis. There is mild bilateral neural foraminal stenosis. There is no central canal stenosis. IMPRESSION: 1. No fracture. 2. Mild cervical spondylosis. 3. Anterior fusion procedure from C3 to C7. Reviewed, dictated and finalized at location E.
[2024-02-29 13:34] VITALS: BP 122/66; PULSE 70; RESP 20; TEMP 36.7; O2SAT 100
[2024-02-29 14:55] VITALS: BP 118/73; PULSE 71; RESP 16; O2SAT 100
[2024-02-29 16:14] VITALS: BP 116/69; PULSE 71; RESP 17; TEMP 36.7; O2SAT 100
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
== END 2024-02-29 16:16 | disposition home or self-care (01) ==
PROVIDERS: Emergency Provider Emergency Medicine; PCP Family Medicine
DX: M54.12 Radiculopathy, cervical region (principal); Z98.1 Arthrodesis status; Z86.711 Personal history of pulmonary embolism; Z87.891 Personal history of nicotine dependence; Z79.01 Long term (current) use of anticoagulants
CPT/HCPCS: 72125; 99284

== ENCOUNTER 2024-10-21 10:57 | Outpatient (CLI) | payer BC, SELFPAY ==
--- OUTSIDE RECORDS SUMMARY | 2024-10-21 11:05 | XMS_ITS ---
Author Organization Unknown Address [address], [place] [phone] Phone Care Team Providers Care Web Analyst Name Role Phone AUDREY Ibarra Attending Unavailable Immunization Immunization Date Status Additional Notes Code Code System COVID-19, mRNA, LNP-S, PF, 3 0 mcg/0.3 mL dose 07/13/2021 Completed 208 CVX COVID-19, mRNA, LNP-S, PF, 3 0 mcg/0.3 mL dose 06/15/2021 Completed 208 CVX Influenza, recombinant, quadrivalent, PF 10/09/2021 Completed 185 CVX Results SARS-COV2 RNA, QUAL RT-PCR - Collect Date/Time: 07/04/2022 00:56 [facility] ID: [id number] [address], [place], [id number] LOINC: 42615-5 Test Value Unit Reference Range Code Code System Flag SARS-CoV-2 NOT DETECTED Social History Type Status Start Date End Date Code Code Syst em Smoking History Unknown if ever smoked [address] Sex Female Hospital Discharge Instructions Should you have any questions prior to discharge, please contact a member of your healthcare team. If you have left the hospital and have any questions, please contact your primary care physician. Reason For Referral No Data Found Plan of Treatment No Data Found Encounters Encounter Diagnosis Start Date Code Code Sys tem Exposure to SARS-CoV-2 07/04/2022 [id number] [facility] Personal Care Team Section Performer Name Performer Role Active Date Inactive Da te
--- OUTSIDE RECORDS SUMMARY | 2024-10-21 11:05 | XMS_ITS ---
Author Organization Unknown Address [address], [place] [phone] Phone Care Team Providers Care Log Processor Operator Name Role Phone AUDREY Ibarra Attending Unavailable Immunization Immunization Date Status Additional Notes Code Code System COVID-19, mRNA, LNP-S, PF, 3 0 mcg/0.3 mL dose 07/13/2021 Completed 208 CVX COVID-19, mRNA, LNP-S, PF, 3 0 mcg/0.3 mL dose 06/15/2021 Completed 208 CVX Influenza, recombinant, quadrivalent, PF 10/09/2021 Completed 185 CVX Results SARS-COV2 RNA, QUAL RT-PCR - Collect Date/Time: 08/13/2022 04:11 [facility] ID: [id number] [address] [place], [place], [phone] LOINC: 58744-2 Test Value Unit Reference Range Code Code System Flag SARS-CoV-2 NOT DETECTED Social History Type Status Start Date End Date Code Code Syst em Smoking History Unknown if ever smoked [id number] Sex Female Hospital Discharge Instructions Should you have any questions prior to discharge, please contact a member of your healthcare team. If you have left the hospital and have any questions, please contact your primary care physician. Reason For Referral No Data Found Plan of Treatment No Data Found Encounters Encounter Diagnosis Start Date Code Code Sys tem Exposure to SARS-CoV-2 08/13/2022 [id number] [facility] Personal Care Team Section Performer Name Performer Role Active Date Inactive Da te
--- OUTSIDE RECORDS SUMMARY | 2024-10-21 11:05 | XMS_ITS ---
Author Organization Unknown Address [address], [place] [phone] Phone Care Team Providers Care Wholesale Account Manager Name Role Phone Marquez Chew Attending Unavailable Immunization Immunization Date Status Additional Notes Code Code System COVID-19, mRNA, LNP-S, PF, 3 0 mcg/0.3 mL dose 07/13/2021 Completed 208 CVX COVID-19, mRNA, LNP-S, PF, 3 0 mcg/0.3 mL dose 06/15/2021 Completed 208 CVX Influenza, recombinant, quadrivalent, PF 10/09/2021 Completed 185 CVX Results SARS-COV2 RNA, QUAL RT-PCR - Collect Date/Time: 12/28/2021 01:18 [facility] ID: [id number] [address], [place], [id number] LOINC: 32526-9 Test Value Unit Reference Range Code Code System Flag SARS-CoV-2 NOT DETECTED Social History Type Status Start Date End Date Code Code Syst em Smoking History Unknown if ever smoked [address] Sex Female Hospital Discharge Instructions Should you have any questions prior to discharge, please contact a member of your healthcare team. If you have left the hospital and have any questions, please contact your primary care physician. Reason For Referral No Data Found Plan of Treatment No Data Found Encounters Encounter Diagnosis Start Date Code Code Sys tem Exposure to SARS-CoV-2 12/28/2021 [id number] [facility] Personal Care Team Section Performer Name Performer Role Active Date Inactive Da te
--- OUTSIDE RECORDS SUMMARY | 2024-10-21 11:05 | XMS_ITS ---
Author Organization Unknown Address [address], [place] [phone] Phone Care Team Providers Care Movie Machine Operator Name Role Phone AUDREY Ibarra Attending Unavailable Immunization Immunization Date Status Additional Notes Code Code System COVID-19, mRNA, LNP-S, PF, 3 0 mcg/0.3 mL dose 07/13/2021 Completed 208 CVX COVID-19, mRNA, LNP-S, PF, 3 0 mcg/0.3 mL dose 06/15/2021 Completed 208 CVX Influenza, recombinant, quadrivalent, PF 10/09/2021 Completed 185 CVX Results SARS-COV2 RNA, QUAL RT-PCR - Collect Date/Time: 10/16/2021 17:09 [facility] ID: [id number] [address], [place], [id number] LOINC: 00985-6 Test Value Unit Reference Range Code Code System Flag SARS-CoV-2 NOT DETECTED Social History Type Status Start Date End Date Code Code Syst em Smoking History Unknown if ever smoked [address] Sex Female Hospital Discharge Instructions Should you have any questions prior to discharge, please contact a member of your healthcare team. If you have left the hospital and have any questions, please contact your primary care physician. Reason For Referral No Data Found Plan of Treatment No Data Found Encounters Encounter Diagnosis Start Date Code Code Sys tem Exposure to SARS-CoV-2 10/16/2021 [id number] [facility] Personal Care Team Section Performer Name Performer Role Active Date Inactive Da te
--- OUTSIDE RECORDS SUMMARY | 2024-10-21 11:06 | XMS_ITS ---
Author Organization Unknown Address [address], [place] [phone] Phone Care Team Providers Care Oracle Identity Management Consultant Name Role Phone Marquez Chew Attending Unavailable [facility] Secondary Unavai lable Immunization Immunization Date Status Additional Notes Code Code System COVID-19, mRNA, LNP-S, PF, 3 0 mcg/0.3 mL dose 07/13/2021 Completed 208 CVX COVID-19, mRNA, LNP-S, PF, 3 0 mcg/0.3 mL dose 06/15/2021 Completed 208 CVX Influenza, recombinant, quadrivalent, PF 10/09/2021 Completed 185 CVX Results SARS-COV2 RNA, QUAL RT-PCR - Collect Date/Time: 01/21/2023 00:33 [facility] [id number] [address], [place], [phone] LOINC: 26379-6 Test Value Unit Reference Range Code Code System Flag SARS-CoV-2 NOT DETECTED Social History Type Status Start Date End Date Code Code Syst em Smoking History Unknown if ever smoked [address] Sex Female Hospital Discharge Instructions Should you have any questions prior to discharge, please contact a member of your healthcare team. If you have left the hospital and have any questions, please contact your primary care physician. Reason For Referral No Data Found Plan of Treatment No Data Found Encounters Encounter Diagnosis Start Date Code Code Sys tem Exposure to SARS-CoV-2 01/21/2023 [id number] [facility] Personal Care Team Section Performer Name Performer Role Active Date Inactive Da te
[2024-10-21 12:20] LABS: INR 1.1; Prothrombin Time 14.2 Seconds (11.1-14.7)
[2024-10-21 12:35] LABS: D Dimer 0.31 ug/mL (<0.48)
== END 2024-10-21 10:58 | disposition home or self-care (01) ==
LOC: ANHLAB 11:03
PROVIDERS: PCP Family Medicine; Referring Provider Family Medicine; Visit Provider Emergency Medicine
DX: D68.51 Activated protein C resistance (principal)
CPT/HCPCS: 36415; 85380; 85610